=== PATIENT | female | born 1995 | race African-American/Black ===

== ENCOUNTER 2018-09-05 07:16 | Emergency (ER) | payer OTHER, MEDICAID ==
[~2018-09-05] VITALS: Ht 175.3 cm; Wt 97.0 kg
[2018-09-05] MEDS ORDERED: METHYLPREDNISOLONE SOD SUCC 125 MG/2 ML VIAL IV SCH (10:00)
[2018-09-05] MEDS ORDERED: KETOROLAC 30MG/ML VIAL IV ONE (10:00)
[2018-09-05] MEDS ORDERED: KETOROLAC 30MG/ML VIAL ONE (10:36)
[2018-09-05] MEDS ORDERED: METHYLPREDNISOLONE SOD SUCC 125 MG/2 ML VIAL ONE (10:36)
[2018-09-05 11:06] VITALS: BP 115/87
== END 2018-09-05 11:07 | disposition home or self-care (01) ==
LOC: ER 07:16
DX: J02.9 Acute pharyngitis, unspecified (principal)
CPT/HCPCS: 81025; 87070; 87430; 96374; 96375; 99283; J1885; J2930; Z7610